=== PATIENT | female | born 1995 | race Caucasian/White ===

== ENCOUNTER 2016-10-14 21:09 | Emergency (ER) | payer MEDICAID ==
[~2016-10-14] VITALS: Ht 162.6 cm; Wt 93.4 kg
[~2016-10-14 21:09] MED LIST: AMOX500C25 PO
[2016-10-14 21:18] VITALS: BP 135/60
[2016-10-14 21:50] LABS: BASOPHILS # (AUTO) 0.1 K/uL (0.00-0.22); BASOPHILS % (AUTO) 1.2 % (0.0-2.0); EOSINOPHILS # (AUTO) 0.1 K/uL (0-0.4); EOSINOPHILS % (AUTO) 1.2 % (0.0-4.0); HEMATOCRIT 34.5 % (36-48); HEMOGLOBIN 11.4 g/dL (12.0-16.0); LYMPHOCYTES # (AUTO) 2.4 K/uL (2.5-16.5); LYMPHOCYTES % (AUTO) 25.4 % (20.5-51.1); MEAN CORPUSCULAR HEMOGLOBIN 29 pg (27-31); MEAN CORPUSCULAR HGB CONC 33 g/dL (33-37); MEAN CORPUSCULAR VOLUME 88 fL (80-94); MONOCYTES # (AUTO) 0.6 K/uL (0.8-1.0); MONOCYTES % (AUTO) 6.9 % (1.7-9.3); NEUTROPHILS # (AUTO) 6.2 K/uL (1.8-7.7); NEUTROPHILS % (AUTO) 65.3 % (42.2-75.2); PLATELET COUNT (AUTO) 311 K/uL (140-450); RED BLOOD CELL COUNT(AUTO) 3.92 MIL/uL (4.20-5.40); RED CELL DISTRIBUTION WIDTH 12.8 % (11.6-13.7); WHITE BLOOD COUNT (AUTO) 9.4 K/uL (4.5-11.0)
--- NOTE | 2016-10-14 22:39 | NUR ---
TO ER BED 8
--- NOTE | 2016-10-14 22:45 | NUR ---
PATIENT PRESENTS TO ED WITH LOWER ABD PAIN, WITH N/V ;DENIES VAG BLEEDING, 14 WEEKS LMP JULY 13 .SKIN IS PINK/WARM/DRY; AAOX4 WITH EVEN AND STEADY GAIT; LUNGS CLEAR BL; HR EVEN AND REGULAR; PT DENIES ANY FEVER, CP, SOB, OR COUGH AT THIS TIME; PATIENT STATES PAIN OF 6/10 AT THIS TIME;PATIENT POSITIONED FOR COMFORT; HOB ELEVATED; BEDRAILS UP X2; BED DOWN. ER MD WILL BE NOTIFIED.
[2016-10-14 23:06] LABS: APPEARANCE,URINE HAZY (CLEAR); BILIRUBIN,URINE NEGATIVE (NEGATIVE); BLOOD, URINE NEGATIVE (NEGATIVE); COLOR,URINE YELLOW (YELLOW); LEUKOCYTE ESTERASE ,URINE TRACE (NEGATIVE); NITRITE, URINE NEGATIVE (NEGATIVE); PH,URINE 6.5 (5.0-9.0); PROTEIN,URINE NEGATIVE (NEGATIVE); UGLUCOSE NEGATIVE (NEGATIVE); UROBILINOGEN,URINE 0.2 EU/dL (0.2 - 1)
[2016-10-14] MEDS ORDERED: ACETAMINOPHEN EXTRA STRENGTH 500 MG TAB PO ONE (23:10)
[2016-10-14 23:18] LABS: BACTERIA,URINE 4+ /HPF (None Seen); MUCUS,URINE 4+ /LPF (None Seen); RBC,URINE 0-5 (RARE) /HPF (0-5); SQUAMOUS EPITHELIAL CELL,UR 50-80 /LPF (0-3 (FEW))
--- NOTE | 2016-10-14 23:18 | NUR ---
PT RESTING ON BED;NO ACUTE DISTRESS NOTED;WILL CONTINUE TO MONITOR PT.
--- NOTE | 2016-10-14 23:40 | NUR ---
Patient discharged with v/s stable. Written and verbal after care instructions given and explained. Patient alert, oriented and verbalized understanding of instructions. Ambulatory with steady gait. All questions addressed prior to discharge. ID band removed. Patient advised to follow up with PMD. Rx of ACETminophen and MACROBID given. Patient educated on indication of medication including possible reaction and side effects. Opportunity to ask questions provided and answered.
[2016-10-14 23:41] VITALS: BP 149/80
== END 2016-10-14 23:41 | disposition home or self-care (01) ==
LOC: MED 21:09
DX: O20.0 Threatened abortion (principal); O23.42 Unspecified infection of urinary tract in pregnancy, second trimester; Z3A.14 14 weeks gestation of pregnancy
CPT/HCPCS: 36415; 76805; 81001; 84702; 85025; 86900; 86901; 87086; 99285

== ENCOUNTER 2019-08-22 05:35 | Inpatient (IN) | payer OTHER ==
[~2019-08-22] VITALS: Ht 162.6 cm; Wt 117.0 kg
[2019-08-22] MEDS ORDERED: LACTATED RINGERS 1,000 ML IV SCH (07:12)
[2019-08-22 07:42] LABS: BASOPHILS % (AUTO) 0.4 % (0.0-2.0); EOSINOPHILS % (AUTO) 0.6 % (0.0-4.0); HEMATOCRIT 26.2 % (36-48); HEMOGLOBIN 8.5 g/dL (12.0-16.0); LYMPHOCYTES # (AUTO) 2.1 K/uL (2.5-16.5); LYMPHOCYTES % (AUTO) 24.9 % (20.5-51.1); MEAN CORPUSCULAR HEMOGLOBIN 23 pg (27-31); MEAN CORPUSCULAR HGB CONC 32 g/dL (33-37); MEAN CORPUSCULAR VOLUME 71.7 fL (80-94); MONOCYTES # (AUTO) 0.5 K/uL (0.8-1.0); MONOCYTES % (AUTO) 5.9 % (1.7-9.3); NEUTROPHILS # (AUTO) 5.7 K/uL (1.8-7.7); NEUTROPHILS % (AUTO) 68.2 % (42.2-75.2); PLATELET COUNT (AUTO) 261 K/uL (140-450); RED BLOOD CELL COUNT(AUTO) 3.66 MIL/uL (4.20-5.40); WHITE BLOOD COUNT (AUTO) 8.3 K/uL (4.8-10.8)
[2019-08-22 07:51] LABS: APPEARANCE,URINE CLEAR (CLEAR); BILIRUBIN,URINE NEGATIVE (NEGATIVE); BLOOD, URINE NEGATIVE (NEGATIVE); COLOR,URINE YELLOW (YELLOW); LEUKOCYTE ESTERASE ,URINE 1+ (NEGATIVE); NITRITE, URINE NEGATIVE (NEGATIVE); UGLUCOSE NEGATIVE (NEGATIVE)
[2019-08-22 08:09] LABS: RBC,URINE 0-5 /HPF (0-5); WBC,URINE 16-25 (MOD) /HPF (0-5)
[2019-08-22] MEDS ORDERED: SIMETHICONE 80 MG TAB.CHEW PO PRN (08:35)
[2019-08-22] MEDS ORDERED: TEMAZEPAM 15 MG CAP PO PRN (08:35)
[2019-08-22] MEDS ORDERED: IBUPROFEN 800 MG TAB PO PRN (08:35)
[2019-08-22] MEDS ORDERED: KETOROLAC 30 MG/ML VIAL IVP PRN (08:35)
[2019-08-22] MEDS ORDERED: oxyCODONE/APAP 5/325 MG 1 TAB TAB PO PRN (08:35)
[2019-08-22] MEDS ORDERED: METHYLERGONOVINE 0.2 MG/ML AMP IM PRN (08:35)
[2019-08-22] MEDS ORDERED: MORPHINE PRES FREE 10 MG/10 ML AMP IV ONE (08:47)
[2019-08-22] MEDS ORDERED: METOCLOPRAMIDE 10 MG/2 ML INJ VIAL ONE (08:50)
[2019-08-22] MEDS ORDERED: ONDANSETRON 4 MG/2 ML VIAL ONE ×2 (08:50→09:40)
[2019-08-22] MEDS ORDERED: OXYTOCIN 20 UNITS in LACTATED RINGERS 1,000 ML IV SCH (09:13)
[2019-08-22] MEDS ORDERED: NALOXONE 0.4 MG/ML VIAL IVP PRN ×2 (09:15)
[2019-08-22] MEDS ORDERED: ONDANSETRON 4 MG/2 ML VIAL IVP PRN (09:15)
[2019-08-22] MEDS ORDERED: diphenhydrAMINE 50 MG/ML VIAL IVP PRN (09:15)
--- NOTE | 2019-08-22 09:22 | NUR ---
PATIENT HAS BEEN SCREENED AND CATEGORIZED LOW NUTRITION RISK. PATIENT WILL BE SEEN WITHIN 7 DAYS OF ADMISSION. 08/28/[address]
[2019-08-22] MEDS ORDERED: OXYTOCIN 20 UNITS/LR PREMIX 1,000 ML IV ONE (09:40)
[2019-08-22] MEDS: KETOROLAC 30 MG/ML VIAL IVP PRN ×2 (10:23→22:26)
[2019-08-22] MEDS: OXYTOCIN 20 UNITS in LACTATED RINGERS 1,000 ML IV SCH (18:50)
[2019-08-22] MEDS: DOCUSATE SOD/SENNA 50/8.6 MG 1 TAB PO SCH (21:00)
[2019-08-23] MEDS ORDERED: OXYTOCIN 20 UNITS/LR PREMIX 1,000 ML IV ONE (02:51)
[2019-08-23] MEDS: OXYTOCIN 20 UNITS in LACTATED RINGERS 1,000 ML IV SCH (03:05)
[2019-08-23] MEDS: oxyCODONE/APAP 5/325 MG 1 TAB TAB PO PRN ×3 (05:57→20:36)
[2019-08-23 06:11] LABS: BASOPHILS # (AUTO) 0.1 K/uL (0.00-0.22); BASOPHILS % (AUTO) 0.5 % (0.0-2.0); EOSINOPHILS % (AUTO) 0.4 % (0.0-4.0); HEMOGLOBIN 7.8 g/dL (12.0-16.0); LYMPHOCYTES # (AUTO) 1.7 K/uL (2.5-16.5); LYMPHOCYTES % (AUTO) 16.9 % (20.5-51.1); MEAN CORPUSCULAR HEMOGLOBIN 23 pg (27-31); MEAN CORPUSCULAR HGB CONC 32 g/dL (33-37); MEAN CORPUSCULAR VOLUME 71.8 fL (80-94); MONOCYTES # (AUTO) 0.7 K/uL (0.8-1.0); MONOCYTES % (AUTO) 6.4 % (1.7-9.3); NEUTROPHILS # (AUTO) 7.8 K/uL (1.8-7.7); NEUTROPHILS % (AUTO) 75.8 % (42.2-75.2); PLATELET COUNT (AUTO) 276 K/uL (140-450); RED BLOOD CELL COUNT(AUTO) 3.35 MIL/uL (4.20-5.40); RED CELL DISTRIBUTION WIDTH 16.5 % (11.6-13.7); WHITE BLOOD COUNT (AUTO) 10.3 K/uL (4.8-10.8)
[2019-08-23] MEDS: SODIUM PHOSPHATE 118 ML ENEM RC SCH (08:40)
[2019-08-23] MEDS ORDERED: CAMERA MC ONE (20:31)
[2019-08-23] MEDS: DOCUSATE SOD/SENNA 50/8.6 MG 1 TAB PO SCH (20:36)
[2019-08-24] MEDS: oxyCODONE/APAP 5/325 MG 1 TAB TAB PO PRN (05:16)
[2019-08-24] MEDS: SODIUM PHOSPHATE 118 ML ENEM RC SCH (09:00)
== END 2019-08-24 16:20 | disposition home or self-care (01) | DRG 540 ==
LOC: MLD 05:35 → OBSVTOIN 08:50 → MFCC 10:19
PROVIDERS: ADMIT Obstetrics & Gynecology; ATTEND Obstetrics & Gynecology
PROC: 10D00Z1 Extraction of Products of Conception, Low, Open Approach (ICD-10-PCS; principal; 2019-08-22 08:35)
DX: O34.211 Maternal care for low transverse scar from previous cesarean delivery (principal); O24.429 Gestational diabetes mellitus in childbirth, unspecified control; Z37.0 Single live birth; Z3A.39 39 weeks gestation of pregnancy
CPT/HCPCS: G0378 ×3; 36415; 51702; 81001; 85025; 86592; 86886; 86900; 86901; 87086; J0690; J1885; J2270; J2405; J2590; J2765; J7060; J7120